=== PATIENT | female | born 1940 | race Caucasian/White ===

== ENCOUNTER 2018-05-15 12:00 | Emergency (ER) | payer MEDICARE ==
[2018-05-15 12:52] LABS: ALT (SGPT) 124 U/L (8-55); AST (SGOT) 253 U/L (5-34); Albumin 4.2 g/dL (3.4-4.8); Alkaline Phosphatase 305 U/L (40-150); Anion Gap 21 mmol/L (10-20); BUN (Urea Nitrogen) 23 mg/dL (9.8-20.1); Bilirubin, Total 2.3 mg/dL (0.2-1.2); CK (CPK) 38 U/L (29-168); Calc. Creatinine Clearance 0 mL/min (70-130); Calcium 10.2 mg/dL (7.8-10.44); Carbon Dioxide 23 mmol/L (23-31); Chloride 104 mmol/L (98-107); Estimated GFR-MDRD 41; Globulin 2.8 g/dL (2.4-3.5); Glucose 169 mg/dL (83-110); Potassium 4.2 mmol/L (3.5-5.1); Sodium 144 mmol/L (136-145)
[2018-05-15 12:54] LABS: Troponin I Less than 0.010 ng/mL (< 0.028)
[2018-05-15 13:01] LABS: Hemoglobin 14.6 g/dL (12.0-16.0); Mean Corpuscular HGB CONC 31.6 g/dL (32.0-36.0); Mean Corpuscular Volume 82.3 fL (78.0-98.0); Mean Platelet Volume 10.1 fL (7.4-10.4); Platelet Count 198 thou/uL (130-400); RBC Distribution Width 13.1 % (11.5-14.5); Red Blood Cell (RBC) Count 5.62 mill/uL (4.20-5.40); White Blood Cell (WBC) Count 9.2 thou/uL (4.8-10.8)
[2018-05-15 13:14] LABS: Band 8 % (5-11); Eosinophils 1 % (0-10); Lymphocytes 10 % (21-51); MDiff Complete? YES; Neutrophil 81 % (42-75); PLT Morphology Comment Appears Adequate; RBC Morphology Normal
[2018-05-15 14:22] LABS: Clarity Cloudy (Clear)
[2018-05-15 14:23] LABS: Leukocyte Small (Negative); Specific Gravity, Urine 1.015 (1.005-1.030)
[2018-05-15 14:24] LABS: Bilirubin Negative (Negative); Blood, Urine Small (Negative); Glucose, Urine (Dipstick) Negative (Negative); Nitrite Negative (Negative); Protein, Urine (Dipstick) 30 mg/dL (Neg-Trace)
[2018-05-15 14:29] LABS: Bacteria/HPF 4+ HPF (None Seen); Crystals/HPF None Seen HPF (Negative); Hyaline Casts/LPF NONE SEEN LPF (0-3 Hyaline); Other Casts/LPF None Seen LPF (0-3 Hyaline); Oval Fat Bodies/HPF None Seen HPF (None Seen); RBC/HPF 0-3 HPF (0-3); Renal Epithelial None Seen HPF (0-3); Sperm/HPF None Seen HPF (None Seen); Squamous Epithelial None Seen HPF (0-3); Transitional Epithelial NONE SEEN HPF (0-3); Trichomonas/HPF None Seen HPF (None Seen); Yeast-All Forms None Seen HPF (None Seen)
--- NOTE | 2018-05-15 14:50 | CT ---
CT ABDOMEN AND PELVIS WITHOUT CONTRAST: Date: 05/15/18 The study was done without IV contrast due to a slightly high creatinine and somewhat low GFR. Axial slices were acquired, then coronal reconstructions were done. FINDINGS: The lung bases are clear, except for some dependent atelectasis. A small hiatal hernia was noted. The liver was normal in size and shape. No space-occupying disease was seen within the limitations of th e noncontrast study. There has been a prior cholecystectomy. The common bile duct measured 9-10 mm in caliber at the level of the duodenum, which is normal for a post cholecystectomy patient. The spleen , pancreas, and adrenal glands appear normal. The right kidney is unremarkable. There has been a prio r left nephrectomy. The aorta is densely calcified, but there is no aneurysm. The bowel is nondistended and shows no free air, free fluid, or sign of obstruction. A moderate amoun t of fecal material is seen in the colon. There is no colonic wall thickening. A few diverticula are seen scattered about, mostly in the sigmoid region. There is no sign of diverticulitis. CT of the pelvis shows no pelvic masses, inflammatory changes, or adnexal issues of concern. Extensiv e degenerative changes are seen in the patient's lumbar spine. IMPRESSION: 1. No significant hepatic abnormality. The biliary system would be best evaluated with ultrasound if needed. 2. Status post left nephrectomy. Status post cholecystectomy. 3. Small hiatal hernia. POS: HOME
[2018-05-15] MEDS ORDERED: Nitrofurantoin Monohyd/M-Cryst 100 MG CAP ONE (14:53)
--- NOTE | 2018-05-15 14:53 | RAD ---
PORTABLE CHEST: Date: 05/15/18 An AP portable film at 1205 hours shows a normal sized heart and clear lungs. No lobar infiltrate or effusion seen. Calcification is seen in the aortic arch. The mediastinum shows no widening. The trach ea is midline. IMPRESSION: No acute thoracic finding. POS: HOME
== END 2018-05-15 15:15 | disposition home or self-care (01) ==
LOC: BURERS 12:00
DX: N39.0 Urinary tract infection, site not specified (principal); I10 Essential (primary) hypertension; G30.9 Alzheimer's disease, unspecified; F02.80 Dementia in other diseases classified elsewhere, unspecified severity, without behavioral disturbance, psychotic disturbance, mood disturbance, and anxiety
CPT/HCPCS: 51701; 71045; 74176; 80053; 81003; 81015; 82550; 82553; 83690; 84484; 85025; 87077; 87086; 87186; 93005; 94760; A4353